=== PATIENT | female | born 1965 | race African-American/Black ===

== ENCOUNTER 2024-02-22 13:54 | Emergency (ER) | payer OTHER, MEDICAID ==
[~2024-02-22] VITALS: Ht 157.5 cm; Wt 54.4 kg
[~2024-02-22 13:54] MED LIST: GLIP10TA11 PO; LISI-782 PO; QUET400T13 PO; SITA100T PO
[2024-02-22 14:16] LABS: BASOPHILS # (AUTO) 0.1 K/UL (0.0-0.2); EOSINOPHILS # (AUTO) 0.1 K/uL (0.0-0.7); EOSINOPHILS % (AUTO) 0.6 % (0.0-7.0); HEMATOCRIT 37.1 % (31.2-41.9); HEMOGLOBIN 11.7 g/dL (10.9-14.3); LYMPHOCYTES # (AUTO) 4.3 K/uL (0.8-4.8); LYMPHOCYTES % (AUTO) 35.4 % (20.5-51.5); MEAN CORPUSCULAR HGB CONC 32 g/dL (32.3-35.6); MEAN CORPUSCULAR VOLUME 85.9 fL (75.5-95.3); MONOCYTES # (AUTO) 0.5 K/uL (0.1-1.30); MONOCYTES % (AUTO) 4.4 % (0.0-11.0); NEUTROPHILS # (AUTO) 7.1 K/uL (1.8-8.9); NEUTROPHILS % (AUTO) 58.6 % (38.5-71.5); PLATELET COUNT (AUTO) 251 K/uL (179-408); RED BLOOD CELL COUNT(AUTO) 4.32 MIL/uL (3.63-4.92); RED CELL DISTRIBUTION WIDTH 14.2 % (12.3-17.7); WHITE BLOOD COUNT (AUTO) 12.1 K/uL (3.8-11.8)
[2024-02-22 14:23] LABS: CALCIUM 9.5 mg/dL (8.5-10.1); CARBON DIOXIDE 16 mmol/L (21-32); CHLORIDE 99 mmol/L (98-107); CREATININE 1.8 mg/dL (0.6-1.3); GLUCOSE 101 mg/dL (74-106); POTASSIUM 4.4 mmol/L (3.5-5.1); SODIUM SERUM 141 mmol/L (136-145); UREA NITROGEN, BLOOD 29 mg/dL (7-18)
[2024-02-22] MEDS ORDERED: CEFTRIAXONE /D5W 50ML IVPB **ER PYXIS IV ONE (14:24)
[2024-02-22] MEDS ORDERED: AZITHROMYCIN 500MG/ D5W 250ML IVPB **ER PYXIS ONLY IV ONE (14:24)
[2024-02-22] MEDS ORDERED: DEXAMETHASONE SOD PHOSPHATE 4 MG INJ ONE (14:25)
[2024-02-22 14:27] LABS: ETHANOL 190 MG/DL (0-10)
[2024-02-22 14:27] LABS: *BILIRUBIN,URIN 2+ (NEGATIVE); *CLARITY,URINE CLEAR (CLEAR); *COLOR,URINE YELLOW (YELLOW); *KETONES,URINE 4+ (NEGATIVE); *PROTEIN,URINE 2+ (NEGATIVE); *UROBILINOGEN,URINE 0.2 E.U./dl (NORMAL); LEUKOCYTE ESTERASE ,URINE TRACE (NEGATIVE); NITRITE, URINE NEGATIVE (NEGATIVE); PH,URINE 5.5 (5.0-8.0); UGLUCOSE NEGATIVE (NEGATIVE)
[2024-02-22 14:28] LABS: *BLOOD, URINE TRACE (NEGATIVE)
[2024-02-22 14:32] LABS: ALANINE AMINOTRANSFERASE 32 U/L (14-59); ALKALINE PHOSPHATASE 120 U/L (50-136); ASPARTATE AMINOTRANSFERASE 23 U/L (15-37); BILIRUBIN,DIRECT 0.1 mg/dL (0.0-0.2); BILIRUBIN,TOTAL 0.4 mg/dL (0.2-1.0); TOTAL PROTEIN, SERUM 8.4 g/dL (6.4-8.2)
[2024-02-22 14:38] LABS: ACETAMINOPHEN < 2.0 ug/mL (10-30)
[2024-02-22 14:40] LABS: *AMPHETAMINE, URINE NEGATIVE (NEGATIVE); *BARBITURATE, URINE NEGATIVE (NEGATIVE); *BENZODIAZEPINE, URINE NEGATIVE (NEGATIVE); *CANNABINOID, URINE NEGATIVE (NEGATIVE); *COCCAINE, URINE NEGATIVE (NEGATIVE); *OPIATE, URINE NEGATIVE (NEGATIVE); *PHENCYCLIDINE SCREEN,URINE NEGATIVE (NEGATIVE); FENTANYL, URINE NEGATIVE (NEGATIVE)
[2024-02-22 14:49] LABS: BACTERIA,URINE FEW /HPF (NONE SEEN); RBC,URINE 0-3 /HPF (0-3); SQUAMOUS EPITHELIAL CELL,UR MODERATE /HPF (NONE SEEN); WBC,URINE 0-3 /HPF (0-3)
[2024-02-22] MEDS: DEXAMETHASONE SOD PHOSPHATE 4 MG INJ IV ONE (14:57)
[2024-02-22] MEDS: IV NORMAL SALINE 1000 ML BAG IV ONE (14:57)
[2024-02-22] MEDS: CEFTRIAXONE 1 G in IV DEXTROSE 5% 50 ML IV ONE (14:57)
[2024-02-22 15:27] LABS: LACTIC ACID 2.4 mmol/L (0.4-2.0)
[2024-02-22] MEDS: AZITHROMYCIN IV 500 MG in IV DEXTROSE 5% 250 ML IV ONE (15:31)
[2024-02-22] MEDS ORDERED: DOXY100C5 PO (16:02)
[2024-02-22] MEDS ORDERED: PRED50TA PO (16:02)
[2024-02-22] MEDS ORDERED: PROM118S5 PO (16:02)
[2024-02-22 17:01] VITALS: BP 110/82; O2SAT 96
== END 2024-02-22 17:02 | disposition home or self-care (01) ==
LOC: ER 13:54
DX: J18.9 Pneumonia, unspecified organism (principal); F10.129 Alcohol abuse with intoxication, unspecified; E11.9 Type 2 diabetes mellitus without complications; F31.9 Bipolar disorder, unspecified; R51.9 Headache, unspecified; F20.9 Schizophrenia, unspecified; F17.200 Nicotine dependence, unspecified, uncomplicated; Z20.822 Contact with and (suspected) exposure to COVID-19; Z79.899 Other long term (current) drug therapy; Z79.1 Long term (current) use of non-steroidal anti-inflammatories (NSAID); Z88.1 Allergy status to other antibiotic agents; Y90.0 Blood alcohol level of less than 20 mg/100 ml
CPT/HCPCS: 80076; 80048; 81001; 83880; 85025; 84145; 85730; 87426; 87040 ×2; 84484; 36415; 93005; 71045; 70450; 99291; 96365; 96367; 96375; 83605; 87086; 80299; 80320; 80307; J0456; J0696; J1100; J7050; J7040; A4606; A4663; G0480

== ENCOUNTER 2024-05-31 16:16 | Emergency (ER) | payer OTHER, MEDICAID ==
[~2024-05-31] VITALS: Ht 157.5 cm; Wt 72.6 kg
[~2024-05-31 16:16] MED LIST changes: +DOXY100C5 PO; +PRED50TA PO; +PROM118S5 PO
[2024-05-31] MEDS ORDERED: CITA10TA9 PO (16:48)
[2024-05-31] MEDS ORDERED: PANT40TA49 PO (16:48)
[2024-05-31] MEDS ORDERED: QUET200T84 PO (16:48)
[2024-05-31] MEDS ORDERED: LISI20TA30 PO (16:48)
[2024-05-31] MEDS ORDERED: INSU100V39 SQ (16:48)
[2024-05-31] MEDS: IV NORMAL SALINE 1000 ML BAG IV ONE (16:52)
[2024-05-31] MEDS ORDERED: FOLIC ACID 5 MG/ML VIAL IV ONE (16:58)
[2024-05-31] MEDS ORDERED: THIAMINE HCL 200 MG/2 ML VIAL ONE (17:00)
[2024-05-31] MEDS ORDERED: MAGNESIUM SULFATE/D5W 100 ML ONE ×2 (17:00→17:56)
[2024-05-31] MEDS ORDERED: LORAZEPAM 2 MG/1 ML VIAL ONE (17:02)
[2024-05-31 17:07] LABS: BASOPHILS # (AUTO) 0.2 K/UL (0.0-0.2); BASOPHILS % (AUTO) 1.3 % (0.0-2.0); EOSINOPHILS # (AUTO) 0.1 K/uL (0.0-0.7); EOSINOPHILS % (AUTO) 0.7 % (0.0-7.0); HEMATOCRIT 37.9 % (31.2-41.9); HEMOGLOBIN 12.2 g/dL (10.9-14.3); LYMPHOCYTES # (AUTO) 4.9 K/uL (0.8-4.8); LYMPHOCYTES % (AUTO) 40.7 % (20.5-51.5); MEAN CORPUSCULAR HEMOGLOBIN 29.7 uug (24.7-32.8); MEAN CORPUSCULAR HGB CONC 32 g/dL (32.3-35.6); MEAN CORPUSCULAR VOLUME 92.4 fL (75.5-95.3); MONOCYTES # (AUTO) 0.5 K/uL (0.1-1.30); NEUTROPHILS # (AUTO) 6.4 K/uL (1.8-8.9); NEUTROPHILS % (AUTO) 53.3 % (38.5-71.5); PLATELET COUNT (AUTO) 281 K/uL (179-408); RED CELL DISTRIBUTION WIDTH 14.8 % (12.3-17.7)
[2024-05-31 17:13] LABS: DIFFERENTIAL COMMENT 1
[2024-05-31 17:16] LABS: CALCIUM 9.3 mg/dL (8.5-10.1); CARBON DIOXIDE 25 mmol/L (21-32); CHLORIDE 102 mmol/L (98-107); CREATININE 1.9 mg/dL (0.6-1.3); GLUCOSE 129 mg/dL (74-106); POTASSIUM 3.3 mmol/L (3.5-5.1); SODIUM SERUM 139 mmol/L (136-145); UREA NITROGEN, BLOOD 26 mg/dL (7-18)
[2024-05-31] MEDS: THIAMINE HCL INJ 100 MG in IV DEXTROSE 5% 50 ML IV SCH (17:16)
[2024-05-31] MEDS: MAGNESIUM SULFATE/D5W 100 ML IV ONE (17:16)
[2024-05-31] MEDS: FOLIC ACID 5 MG/ML VIAL IV ONE (17:16)
[2024-05-31] MEDS: LORAZEPAM 2 MG/1 ML VIAL IV ONE (17:16)
[2024-05-31 17:22] LABS: ALANINE AMINOTRANSFERASE 33 U/L (14-59); ALBUMIN 3.9 g/dL (3.4-5.0); ALKALINE PHOSPHATASE 140 U/L (50-136); ASPARTATE AMINOTRANSFERASE 22 U/L (15-37); BILIRUBIN,DIRECT < 0.1 mg/dL (0.0-0.2); BILIRUBIN,TOTAL 0.2 mg/dL (0.2-1.0); TOTAL PROTEIN, SERUM 7.7 g/dL (6.4-8.2)
[2024-05-31 17:32] LABS: ETHANOL 342 MG/DL (0-10)
[2024-05-31] MEDS ORDERED: MIDAZOLAM HCL 2 MG/2 ML VIAL ONE (18:11)
[2024-05-31] MEDS: MIDAZOLAM HCL 2 MG/2 ML VIAL IV ONE (18:15)
[2024-05-31 18:45] LABS: *BILIRUBIN,URIN NEGATIVE (NEGATIVE); *BLOOD, URINE NEGATIVE (NEGATIVE); *CLARITY,URINE CLEAR (CLEAR); *COLOR,URINE YELLOW (YELLOW); *KETONES,URINE NEGATIVE (NEGATIVE); *PROTEIN,URINE NEGATIVE (NEGATIVE); *UROBILINOGEN,URINE 0.2 E.U./dl (NORMAL); LEUKOCYTE ESTERASE ,URINE TRACE (NEGATIVE); NITRITE, URINE NEGATIVE (NEGATIVE); PH,URINE 5.5 (5.0-8.0); UGLUCOSE NEGATIVE (NEGATIVE)
[2024-05-31 18:47] LABS: *URINE HCG, QUAL NEGATIVE (NEGATIVE)
[2024-05-31 18:58] LABS: *AMPHETAMINE, URINE NEGATIVE (NEGATIVE); *BARBITURATE, URINE NEGATIVE (NEGATIVE); *BENZODIAZEPINE, URINE NEGATIVE (NEGATIVE); *CANNABINOID, URINE NEGATIVE (NEGATIVE); *COCCAINE, URINE NEGATIVE (NEGATIVE); *OPIATE, URINE NEGATIVE (NEGATIVE); *PHENCYCLIDINE SCREEN,URINE NEGATIVE (NEGATIVE); FENTANYL, URINE NEGATIVE (NEGATIVE)
[2024-05-31 19:17] LABS: BACTERIA,URINE NONE SEEN /HPF (NONE SEEN); RBC,URINE NONE SEEN /HPF (0-3); SQUAMOUS EPITHELIAL CELL,UR FEW /HPF (NONE SEEN); WBC,URINE 0-3 /HPF (0-3)
[2024-06-01 06:43] VITALS: BP 120/66; TEMP 98.2; O2SAT 99
== END 2024-06-01 06:44 | disposition home or self-care (01) ==
LOC: ER 16:17
DX: F10.129 Alcohol abuse with intoxication, unspecified (principal); R51.9 Headache, unspecified; E11.9 Type 2 diabetes mellitus without complications; F31.9 Bipolar disorder, unspecified; F20.9 Schizophrenia, unspecified; I10 Essential (primary) hypertension; R10.2 Pelvic and perineal pain; F17.200 Nicotine dependence, unspecified, uncomplicated; Z86.73 Personal history of transient ischemic attack (TIA), and cerebral infarction without residual deficits; Z79.52 Long term (current) use of systemic steroids; Z79.84 Long term (current) use of oral hypoglycemic drugs; Z79.899 Other long term (current) drug therapy; Z20.822 Contact with and (suspected) exposure to COVID-19; Z88.1 Allergy status to other antibiotic agents; Y90.0 Blood alcohol level of less than 20 mg/100 ml
CPT/HCPCS: 80076; 80048; 81001; 84703; 83735; 85025; 87426; 36415; 71045; 70450; 99285; 96365; 96366; 96368; 96375; 80320; 80307; J3490; J2060; J3475 ×2; J2250; J3411; J7040; A4606; A4663; C1758; G0480

== ENCOUNTER 2024-07-28 18:59 | Emergency (ER) | payer BC, MEDICAID, OTHER ==
[2024-07-27] MEDS: MAGNESIUM SULFATE/D5W 100 ML IV ONE (23:30)
[~2024-07-28] VITALS: Ht 157.5 cm; Wt 72.6 kg
[2024-07-28] MEDS: IV LACTATED RINGERS SOLUTION 1,000 ML BAG IV ONE (00:30)
[~2024-07-28 18:59] MED LIST changes: +CITA10TA9 PO; +INSU100V39 SQ; +LISI20TA30 PO; +PANT40TA49 PO; +QUET200T84 PO
[2024-07-28 19:40] LABS: BASOPHILS # (AUTO) 0.1 K/UL (0.0-0.2); BASOPHILS % (AUTO) 0.7 % (0.0-2.0); EOSINOPHILS # (AUTO) 0.2 K/uL (0.0-0.7); HEMATOCRIT 31.6 % (31.2-41.9); HEMOGLOBIN 10.6 g/dL (10.9-14.3); LYMPHOCYTES # (AUTO) 5.5 K/uL (0.8-4.8); LYMPHOCYTES % (AUTO) 53.9 % (20.5-51.5); MEAN CORPUSCULAR HEMOGLOBIN 29.8 uug (24.7-32.8); MEAN CORPUSCULAR HGB CONC 34 g/dL (32.3-35.6); MEAN CORPUSCULAR VOLUME 88.6 fL (75.5-95.3); MONOCYTES # (AUTO) 0.4 K/uL (0.1-1.30); MONOCYTES % (AUTO) 3.9 % (0.0-11.0); NEUTROPHILS % (AUTO) 39.5 % (38.5-71.5); PLATELET COUNT (AUTO) 152 K/uL (179-408); RED BLOOD CELL COUNT(AUTO) 3.57 MIL/uL (3.63-4.92); RED CELL DISTRIBUTION WIDTH 14.3 % (12.3-17.7); WHITE BLOOD COUNT (AUTO) 10.1 K/uL (3.8-11.8)
[2024-07-28] MEDS: MIDAZOLAM HCL 2 MG/2 ML VIAL IV ONE ×2 (19:45→20:50)
[2024-07-28 20:10] LABS: CALCIUM 7.9 mg/dL (8.5-10.1); CARBON DIOXIDE 24 mmol/L (21-32); CHLORIDE 104 mmol/L (98-107); CREATININE 1.3 mg/dL (0.6-1.3); GLUCOSE 152 mg/dL (74-106); POTASSIUM 3.8 mmol/L (3.5-5.1); SODIUM SERUM 142 mmol/L (136-145); UREA NITROGEN, BLOOD 20 mg/dL (7-18)
[2024-07-28 20:15] LABS: ALANINE AMINOTRANSFERASE 20 U/L (14-59); ALBUMIN 3.6 g/dL (3.4-5.0); ALKALINE PHOSPHATASE 121 U/L (50-136); ASPARTATE AMINOTRANSFERASE 14 U/L (15-37); BILIRUBIN,DIRECT < 0.1 mg/dL (0.0-0.2); BILIRUBIN,TOTAL 0.2 mg/dL (0.2-1.0); TOTAL PROTEIN, SERUM 7.4 g/dL (6.4-8.2)
[2024-07-28 20:16] LABS: DIFFERENTIAL COMMENT 1
[2024-07-28 20:30] LABS: ETHANOL 456 MG/DL (0-10)
[2024-07-28] MEDS ORDERED: MIDAZOLAM HCL 2 MG/2 ML VIAL ONE (20:47)
[2024-07-28] MEDS: IV NORMAL SALINE 1000 ML BAG IV ONE (21:00)
[2024-07-28] MEDS ORDERED: MAGNESIUM SULFATE/D5W 100 ML ONE (23:53)
[2024-07-28] MEDS ORDERED: THIAMINE HCL 200 MG/2 ML VIAL ONE (23:53)
[2024-07-28] MEDS: THIAMINE HCL 200 MG/2 ML VIAL IV ONE (23:55)
[2024-07-29 07:57] VITALS: BP 130/80; TEMP 97.9; O2SAT 96
== END 2024-07-29 08:44 | disposition home or self-care (01) ==
LOC: ER 18:59
DX: F10.129 Alcohol abuse with intoxication, unspecified (principal); E11.9 Type 2 diabetes mellitus without complications; F17.210 Nicotine dependence, cigarettes, uncomplicated; R51.9 Headache, unspecified; F20.9 Schizophrenia, unspecified; Z79.4 Long term (current) use of insulin; Z79.52 Long term (current) use of systemic steroids; Z79.84 Long term (current) use of oral hypoglycemic drugs; Z79.899 Other long term (current) drug therapy; Z86.73 Personal history of transient ischemic attack (TIA), and cerebral infarction without residual deficits; Z88.1 Allergy status to other antibiotic agents; Y90.0 Blood alcohol level of less than 20 mg/100 ml
CPT/HCPCS: 36415; 70450; 83735; 85025; A4606; A4663; G0480; J2250; J3411; J3475; J7040; J7120